=== PATIENT | male | born 1985 ===

== ENCOUNTER 2016-09-14 22:40 | Emergency (ER) | payer SELFPAY ==
[2016-09-14 22:47] VITALS: BP 148/84; PULSE 81; RESP 17; TEMP 98.2; O2SAT 96
--- NOTE | 2016-09-14 22:52 | ED PDOC ---
HPI: Back Time Seen by Provider: 09/14/16 22:51 Chief Complaint (Nursing): Back Pain Chief Complaint (Provider): back pain History Per: Patient Past Medical History Vital Signs: Last Vital Signs Temp 98.2 F 09/14/16 22:43 Pulse 81 09/14/16 22:43 Resp 17 09/14/16 22:43 BP 148/84 09/14/16 22:43 Pulse Ox 96 09/14/16 22:43 - Allergies Allergies/Adverse Reactions: Allergies Allergy/AdvReac Type Severity Reaction Status Date / Time Penicillins Allergy Mild RASH Verified 09/14/16 22:47 - ECG O2 Sat by Pulse Oximetry: 96
[2016-09-14] MEDS ORDERED: Naproxen 500 MG TAB PO STA (23:04)
[2016-09-14] MEDS ORDERED: Naproxen 500 MG TAB PO ONE (23:15)
--- NOTE | 2016-09-14 23:37 | ED PDOC ---
HPI: Back Time Seen by Provider: 09/14/16 22:51 Chief Complaint (Nursing): Back Pain Chief Complaint (Provider): Back Pain History Per: Patient History/Exam Limitations: no limitations Onset/Duration Of Symptoms: Days (2) Current Symptoms Are (Timing): Still Present Quality Of Discomfort: Other (Pins and needles) Severity: Moderate Pain Scale Rating Of: 8 Previous Symptoms: None Associated Symptoms: New Numbness Exacerbating Factor(s): Movement, Standing Additional Complaint(s): 31 y/o M with unremarkable PMH presents to ED with 2 day history of right lower back pain. Patient reports lifting a 20lb box of shrimp from the floor at work when he noticed a sudden onset of right lower back pain. Pain is described as severe, and radiates posteriorly into his right buttock then anteriorly to the level of the right knee. Pain is aggravated by movement/standing and not alleviated by an OTC homeopathic muscle relaxant or advil 400mg. He denies prior history of back pain and further denies fevers, chest pain, sob, abdominal pain, nausea, vomiting or urine/bowel incontinence. Past Medical History Vital Signs: Last Vital Signs Temp 98.2 F 09/14/16 22:43 Pulse 81 09/14/16 22:43 Resp 17 09/14/16 22:43 BP 148/84 09/14/16 22:43 Pulse Ox 96 09/14/16 22:43 - Medical History PMH: No Chronic Diseases - Family History Family History: States: No Known Family Hx - Home Medications Home Medications: Ambulatory Orders Medication Instructions Recorded Cyclobenzaprine [Flexeril] 10 mg PO Q8H #15 tab 09/15/16 Naproxen 500 mg PO Q12 #14 tab 09/15/16 - Allergies Allergies/Adverse Reactions: Allergies Allergy/AdvReac Type Severity Reaction Status Date / Time Penicillins Allergy Mild RASH Verified 09/14/16 22:47 Review of Systems Constitutional: Negative for: Fever, Chills Cardiovascular: Negative for: Chest Pain, Palpitations Respiratory: Negative for: Cough, Shortness of Breath Gastrointestinal: Negative for: Nausea, Vomiting, Abdominal Pain, Diarrhea Genitourinary Male: Negative for: Incontinence Musculoskeletal: Positive for: Back Pain Neurological: Positive for: Other (paresthesia in right buttock) Physical Exam - Physical Exam Appears: Positive for: No Acute Distress, Uncomfortable Head Exam: Positive for: ATRAUMATIC, NORMAL INSPECTION, NORMOCEPHALIC Skin: Positive for: Normal Color, Warm, Dry Eye Exam: Positive for: Normal appearance, EOMI, PERRL Neck: Positive for: Normal, Painless ROM Cardiovascular/Chest: Positive for: Regular Rate, Rhythm, Chest Non Tender. Negative for: Murmur Respiratory: Positive for: Normal Breath Sounds Gastrointestinal/Abdominal: Positive for: Normal Exam, Soft. Negative for: Tenderness, Distended Back: Positive for: Other (Right lower lumbar paravertebral tenderness, Right straight leg raise positive) Extremity: Positive for: Normal ROM. Negative for: Pedal Edema DTR - Knee (R): 2+ DTR - Knee (L): 2+ Neurologic/Psych: Positive for: Alert, Oriented (x3) - ECG O2 Sat by Pulse Oximetry: 96 - Progress ED Course And Treament: 23:05 Lumbar Xray ordered Naproxen 500mg PO given Disposition - Clinical Impression Clinical Impression: Lumbosacral strain, Acute back pain - Patient ED Disposition Is Patient to be Admitted: No Counseled Patient/Family Regarding: Studies Performed, Need For Followup - Disposition Referrals: [facility] [Outside] Disposition: Routine/Home Disposition Time: 00:40 Condition: STABLE Prescriptions: Cyclobenzaprine [Flexeril] 10 mg PO Q8H #15 tab Naproxen 500 mg PO Q12 #14 tab Instructions: Acute Low Back Pain (ED), Lumbar Radiculopathy (ED) Print Language: STATELESS
--- NOTE | 2016-09-15 14:23 | RAD ---
PROCEDURE: Radiographs of the Lumbar Spine. HISTORY: back pain COMPARISON: No prior. FINDINGS: BONES: Normal alignment. No listhesis. No fracture. DISC SPACES: Unremarkable. OTHER FINDINGS: None. IMPRESSION: Unremarkable radiographs of the lumbar spine.
== END 2016-09-15 01:00 | disposition home or self-care (01) ==
LOC: H.ER 22:40
DX: S39.012A Strain of muscle, fascia and tendon of lower back, initial encounter (principal); X50.0XXA Overexertion from strenuous movement or load, initial encounter; Y99.0 Civilian activity done for income or pay; Z88.0 Allergy status to penicillin

== ENCOUNTER 2017-09-23 11:22 | Emergency (ER) | payer OTHER ==
[2017-09-23] MEDS ORDERED: Oxycodone/Acetaminophen 5/325 mg Tab PO STA (12:23)
--- NOTE | 2017-09-23 12:34 | ED PDOC ---
HPI: Back Time Seen by Provider: 09/23/17 12:15 Chief Complaint (Nursing): Back Pain Chief Complaint (Provider): Back Pain History Per: Patient History/Exam Limitations: no limitations Onset/Duration Of Symptoms: Days (x6) Current Symptoms Are (Timing): Still Present Additional Complaint(s): 32 year old male presents to the ED for evaluation of back pain radiating down both legs. 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 He reports finding it difficult to stand up straight or move / bend secondary to the pain. States he has been taking Advil without relief, his last dose yesterday. PMD: none provided Past Medical History Reviewed: Historical Data, Nursing Documentation, Vital Signs Vital Signs: Last Vital Signs Temp 98.5 F 09/23/17 11:50 Pulse 81 09/23/17 11:50 Resp 20 09/23/17 11:50 BP 144/84 09/23/17 11:50 Pulse Ox 98 09/23/17 11:50 - Medical History PMH: No Chronic Diseases - Surgical History Surgical History: No Surg Hx - Family History Family History: States: Unknown Family Hx - Home Medications Home Medications: Ambulatory Orders Medication Instructions Recorded Cyclobenzaprine [Flexeril] 10 mg PO Q8H #15 tab 09/15/16 Naproxen 500 mg PO Q12 #14 tab 09/15/16 Naproxen 375 mg PO Q8 PRN #21 tablet 09/23/17 diaZEpam [Valium] 5 mg PO Q8 PRN #5 tab 09/23/17 - Allergies Allergies/Adverse Reactions: Allergies Allergy/AdvReac Type Severity Reaction Status Date / Time Penicillins Allergy Mild RASH Verified 09/23/17 11:50 Review of Systems ROS Statement: Except As Marked, All Systems Reviewed And Found Negative Musculoskeletal: Positive for: Back Pain (radiating down both legs) Physical Exam - Reviewed Nursing Documentation Reviewed: Yes Vital Signs Reviewed: Yes - Physical Exam Appears: Positive for: No Acute Distress Head Exam: Positive for: ATRAUMATIC, NORMOCEPHALIC Skin: Positive for: Normal Color, Warm, Dry Neck: Positive for: Normal, Painless ROM, Supple Cardiovascular/Chest: Positive for: Regular Rate, Rhythm Respiratory: Positive for: Normal Breath Sounds. Negative for: Accessory Muscle Use, Respiratory Distress Gastrointestinal/Abdominal: Positive for: Normal Exam, Soft. Negative for: Tenderness Back: Positive for: Other (bilateral paralumbar muscular spasms) Extremity: Positive for: Normal ROM Neurologic/Psych: Positive for: Alert, Oriented (x3). Negative for: Motor/ Sensory Deficits - ECG O2 Sat by Pulse Oximetry: 98 (RA) Pulse Ox Interpretation: Normal Medical Decision Making Medical Decision Making: Time: 12:23 Initial Impression: back pain Initial Plan: --Percocet 1 tab PO --Toradol 30 mg IM Scribe Attestation: Documented by Alida Amezcua, acting as a scribe for Aminah Pierce PA-C. Provider Scribe Attestation: All medical record entries made by the Scribe were at my direction and personally dictated by me. I have reviewed the chart and agree that the record accurately reflects my personal performance of the history, physical exam, medical decision making, and the department course for this patient. I have also personally directed, reviewed, and agree with the discharge instructions and disposition. Disposition - Clinical Impression Clinical Impression: Back strain - Patient ED Disposition Is Patient to be Admitted: No - Disposition Referrals: [facility] [Outside] Disposition: Routine/Home Disposition Time: 13:08 Condition: FAIR Prescriptions: diaZEpam [Valium] 5 mg PO Q8 PRN #5 tab PRN Reason: Muscle Spasm Naproxen 375 mg PO Q8 PRN #21 tablet PRN Reason: Pain, Moderate (4-7) Instructions: Low Back Pain in Adults Forms: [facility] ED School/Work Excuse Print Language: GREEK
[2017-09-23] MEDS ORDERED: Oxycodone/Acetaminophen 5/325 mg Tab ONE (12:38)
[2017-09-23 15:53] VITALS: BP 128/78; PULSE 70; RESP 18; TEMP 98.4
[2017-09-23 17:05] VITALS: O2SAT 98
== END 2017-09-23 15:57 | disposition home or self-care (01) ==
LOC: H.ER 11:22
DX: S39.012A Strain of muscle, fascia and tendon of lower back, initial encounter (principal); X50.9XXA Other and unspecified overexertion or strenuous movements or postures, initial encounter; Y99.0 Civilian activity done for income or pay; Z88.0 Allergy status to penicillin